=== PATIENT | male | born 1970 | race Caucasian/White ===

== ENCOUNTER → 2024-06-05 | Outpatient (CLI) | payer OTHER, SELFPAY ==
--- NOTE | 2024-06-05 11:00 | PET_ITS ---
EXAMINATION: PSMA-Pylarify PET CT INDICATIONS: A 53-year-old male with history of primary prostate carcinoma presenting for restaging examination. COMPARISON: None available. INDEX LESION SIZE SUV PROMISE SCORE INTERPRETATION Prostate gland right of the midline 10.6 mm 16.03 2 Fulfills quantitative criteria for viable neoplasm. TECHNIQUE: Following the intravenous administration of mCi of PSMA-Pylarify via the right antecubital fossa, image acquisitions of the head, neck, chest, abdomen and pelvis to the level of the mid thigh at 73 minutes post-tracer distribution reveal: The examination was interpreted using the EANM ([place] et al., Journal of Nuclear Medicine Molecular Imaging 44:1622, 2017) and PROMISE (Eidaljit et al., Journal of Nuclear Medicine 59:469, 2018) interpretive criteria. HEIGHT: inches. WEIGHT: lbs. PSMA expression score PROMISE criteria: High (3): SUV ? parotid-salivary gland, intermediate (2): SUV ? liver, low (1): > blood pool, < liver, (0): < blood pool. SUV reference values: Parotid glands: 19.05 Normal liver parenchyma: 6.04 Blood pool: 1.6 FINDINGS: Head/Neck: Symmetric tracer concentration is noted in the right and left parotid glands. The left submandibular gland demonstrates physiologic tracer uptake. There is non-visualization of the right adrenal gland. Uptake is discerned within the nasal cavity. There is no evidence of abnormal increased radiopharmaceutical concentration within the context of the cranial vault. CHEST: There is no evidence of abnormal increased radiopharmaceutical within the context of the bilateral hemithorax pulmonary parenchyma, mediastinal structures and right-left thoracic perihilum. Pertinent chest CT findings are as follows. Mediastinal and bilateral axillary soft tissue densities are nontracer avid. Atherosclerotic calcification is defined in the thoracic aorta without evidence of dilatation, aneurysm formation. Coronary arterial calcification is observed. There are no parenchymal densities-nodules defined in the right and left hemithorax with quantitatively significant increased radiotracer uptake. Abdomen/Pelvis: Facilitated uptake is noted in the lower pelvis caudal to the urinary bladder in the distribution of the prostate gland, prostate bed. The calculated maximum standard uptake value is 16.03. The PROMISE score is 2. The maximum axial diameter of the metabolic, morphologic abnormality is 10.6 mm. Physiologic tracer uptake is manifest in the hepatic and splenic parenchyma, bilateral renal units, urinary bladder, and visualized intestinal tract. The abdomen and pelvis CT findings are as follows. There is atherosclerotic calcification defined in the abdominal aorta without evidence of dilatation-aneurysm formation. Pelvic arterial calcification is defined. Bilateral fat containing inguinal hernias are demonstrated. Right and left inguinal soft tissue densities are nontracer avid. There is calcification in the base of the prostate gland to the left of the midline. Seminal vesicles are prominent in size. Skeletal: Pertinent skeletal CT findings are as follows. Degenerative changes defined in the cervical, thoracic and lumbar spine demonstrate no evidence of glucose hypermetabolism. PET/PET/CT Tumor Base -Thigh Subs IMPRESSION: 1. ABNORMAL EXAMINATION INDICATIVE OF MALIGNANT-VIABLE NEOPLASM. 2. Increased tracer uptake noted in the prostate gland fulfills quantitative criteria for viable neoplasm. Electronic Signature Scott Roach D.O. Accurate Quantification of SUVs and standardized PROMISE scores for this report are calculated using the exclusive [employer], ([place] Patent No. [phone] [id number] [phone] [phone] [place] patent [phone] ). Standardization and correction of the FDG SUV metric exclusively available with [employer] intellectual property, allow for vendor non-specific objective quantitative sequential FDG PET-CT comparison and otherwise unobtainable optimization of the sensitivity and specificity of the examination. [email or web address] Electronically Signed: Scott Roach DO at 11:38 EDT ,
== END | disposition home or self-care (01) ==
DX: C61 Malignant neoplasm of prostate (principal); R97.21 Rising PSA following treatment for malignant neoplasm of prostate
CPT/HCPCS: 78815; A9595